=== PATIENT | male | born 1995 | race African-American/Black ===

== ENCOUNTER 2018-06-27 09:56 | Outpatient (CLI) | payer OTHER ==
[~2018-06-27] VITALS: Ht 170.2 cm; Wt 77.6 kg
== END 2018-06-27 11:56 | disposition home or self-care (01) ==
LOC: ECT 09:56
DX: F33.2 Major depressive disorder, recurrent severe without psychotic features (principal)

== ENCOUNTER 2018-07-08 09:07 | Outpatient (RCR) | payer OTHER ==
[~2018-07-08] VITALS: Ht 170.2 cm; Wt 77.6 kg
[2018-07-08] MEDS ORDERED: Methohexital Sodium Syr 100mg/10ml IVP ONE (09:08)
[2018-07-08] MEDS ORDERED: Midazolam 2mg/2ml Inj ONE (09:08)
[2018-07-08] MEDS ORDERED: Succinylcholine 20mg/ml 10ml vial ONE (09:08)
[2018-07-08] MEDS ORDERED: NS 500ML ONE (09:08)
[2018-07-08 11:44] VITALS: BP 127/83
[2018-07-08] MEDS ORDERED: Sodium Chloride 500ML 500 ML IV ONE (11:59)
[2018-07-08 12:00] VITALS: BP 132/50
[2018-07-08 12:05] VITALS: BP 131/49
[2018-07-08 12:10] VITALS: BP 131/65
[2018-07-08 12:15] VITALS: BP 140/74
[2018-07-08 12:47] VITALS: BP 127/83
[2018-07-10] MEDS ORDERED: Ketorolac 60mg Inj IM ONE (07:00)
[2018-07-10] MEDS ORDERED: NS 500ML ONE (07:00)
[2018-07-10] MEDS ORDERED: Methohexital Sodium Syr 100mg/10ml IVP ONE (07:00)
[2018-07-10] MEDS ORDERED: Midazolam 2mg/2ml Inj ONE (07:00)
[2018-07-10] MEDS ORDERED: Succinylcholine 20mg/ml 10ml vial ONE (07:00)
[2018-07-10 10:36] VITALS: BP 123/76
[2018-07-10] MEDS ORDERED: Sodium Chloride 500ML 500 ML IV ONE (10:48)
[2018-07-10 10:50] VITALS: BP 147/53
[2018-07-10 10:55] VITALS: BP 127/48
[2018-07-10 11:00] VITALS: BP 140/51
[2018-07-10 11:05] VITALS: BP 133/60
[2018-07-12] MEDS ORDERED: Midazolam 2mg/2ml Inj ONE (07:00)
[2018-07-12] MEDS ORDERED: Methohexital Sodium Syr 100mg/10ml IVP ONE (07:00)
[2018-07-12] MEDS ORDERED: NS 500ML ONE (07:00)
[2018-07-12] MEDS ORDERED: Succinylcholine 20mg/ml 10ml vial ONE (07:00)
[2018-07-12] MEDS ORDERED: Ketorolac 60mg Inj IM ONE (07:00)
[2018-07-12 10:07] VITALS: BP 113/63
[2018-07-12] MEDS ORDERED: Sodium Chloride 500ML 500 ML IV ONE (10:21)
[2018-07-12 10:25] VITALS: BP 128/58
[2018-07-12 10:30] VITALS: BP 131/58
[2018-07-12 10:35] VITALS: BP 126/63
[2018-07-12 10:40] VITALS: BP 128/66
[2018-07-15] MEDS ORDERED: Succinylcholine 20mg/ml 10ml vial ONE (07:00)
[2018-07-15] MEDS ORDERED: Midazolam 2mg/2ml Inj ONE (07:00)
[2018-07-15] MEDS ORDERED: Ketorolac 60mg Inj IM ONE (07:00)
[2018-07-15] MEDS ORDERED: NS 500ML ONE (07:00)
[2018-07-15] MEDS ORDERED: Norco 5mg/325mg tab ONE (07:00)
[2018-07-15] MEDS ORDERED: Methohexital Sodium Syr 100mg/10ml IVP ONE (07:00)
[2018-07-15] MEDS ORDERED: Sodium Chloride 500ML 500 ML IV ONE (09:00)
[2018-07-15 09:40] VITALS: BP 124/79
[2018-07-15 09:55] VITALS: BP 151/65
[2018-07-15 10:00] VITALS: BP 134/69
[2018-07-15 10:05] VITALS: BP 132/69
[2018-07-15 10:10] VITALS: BP 130/70
[2018-07-19] MEDS ORDERED: NS 500ML ONE (06:00)
[2018-07-19] MEDS ORDERED: Ketorolac 60mg Inj IM ONE (06:00)
[2018-07-19] MEDS ORDERED: Succinylcholine 20mg/ml 10ml vial ONE (06:00)
[2018-07-19] MEDS ORDERED: Methohexital Sodium Syr 100mg/10ml IVP ONE (06:00)
[2018-07-19] MEDS ORDERED: Midazolam 2mg/2ml Inj ONE (06:00)
[2018-07-19 09:49] VITALS: BP 125/82
[2018-07-19] MEDS ORDERED: Sodium Chloride 500ML 500 ML IV ONE (10:02)
[2018-07-19 10:05] VITALS: BP 143/43
[2018-07-19 10:10] VITALS: BP 129/49
[2018-07-19 10:15] VITALS: BP 129/55
[2018-07-19 10:20] VITALS: BP 135/48
== END 2018-07-21 | disposition home or self-care (01) ==
LOC: ECT 09:07
DX: F33.2 Major depressive disorder, recurrent severe without psychotic features (principal)
CPT/HCPCS: 90870; J0330; J2250; J2405; J7040

== ENCOUNTER 2018-07-22 07:56 | Outpatient (RCR) | payer OTHER ==
[~2018-07-22] VITALS: Ht 170.2 cm; Wt 77.6 kg
[2018-07-22] MEDS ORDERED: Methohexital Sodium Syr 100mg/10ml IVP ONE ×6 (07:57)
[2018-07-22] MEDS ORDERED: Ketorolac 60mg Inj IM ONE ×6 (07:57)
[2018-07-22] MEDS ORDERED: Midazolam 2mg/2ml Inj ONE ×6 (07:57)
[2018-07-22] MEDS ORDERED: NS 500ML ONE ×6 (07:57)
[2018-07-22] MEDS ORDERED: Succinylcholine 20mg/ml 10ml vial ONE ×6 (07:57)
[2018-07-22 10:40] VITALS: BP 124/71
[2018-07-22] MEDS ORDERED: Sodium Chloride 500ML 500 ML IV ONE (10:52)
[2018-07-22 10:55] VITALS: BP 131/56
[2018-07-22 11:00] VITALS: BP 125/63
[2018-07-22 11:05] VITALS: BP 126/66
[2018-07-22 11:10] VITALS: BP 128/68
[2018-07-24 10:31] VITALS: BP 135/70
[2018-07-24] MEDS ORDERED: Sodium Chloride 500ML 500 ML IV ONE (10:47)
[2018-07-24 10:50] VITALS: BP 135/62
[2018-07-24 10:55] VITALS: BP 138/65
[2018-07-24 11:00] VITALS: BP 137/67
[2018-07-24 11:05] VITALS: BP 132/61
[2018-07-26 10:44] VITALS: BP 125/83
[2018-07-26] MEDS ORDERED: Sodium Chloride 500ML 500 ML IV ONE (10:56)
[2018-07-26 11:00] VITALS: BP 139/42
[2018-07-26 11:05] VITALS: BP 131/57
[2018-07-26 11:10] VITALS: BP 129/62
[2018-07-26 11:15] VITALS: BP 133/69
[2018-07-29 10:02] VITALS: BP 131/81
[2018-07-29] MEDS ORDERED: Sodium Chloride 500ML 500 ML IV ONE (10:16)
[2018-07-29 10:20] VITALS: BP 127/81
[2018-07-29 10:25] VITALS: BP 128/69
[2018-07-29 10:30] VITALS: BP 130/70
[2018-07-29 10:35] VITALS: BP 126/69
[2018-07-31 10:25] VITALS: BP 142/94
[2018-07-31] MEDS ORDERED: Sodium Chloride 500ML 500 ML IV ONE (10:46)
[2018-07-31 10:50] VITALS: BP 134/83
[2018-07-31 10:55] VITALS: BP 138/75
[2018-07-31 11:00] VITALS: BP 131/77
[2018-07-31 11:05] VITALS: BP 135/79
[2018-08-05] MEDS ORDERED: Succinylcholine 20mg/ml 10ml vial ONE (06:00)
[2018-08-05] MEDS ORDERED: NS 500ML ONE (06:00)
[2018-08-05] MEDS ORDERED: Ketorolac 60mg Inj IM ONE (06:00)
[2018-08-05] MEDS ORDERED: Methohexital Sodium Syr 100mg/10ml IVP ONE (06:00)
[2018-08-05] MEDS ORDERED: Midazolam 2mg/2ml Inj ONE (06:00)
[2018-08-05 10:48] VITALS: BP 136/76
[2018-08-05] MEDS ORDERED: Sodium Chloride 500ML 500 ML IV ONE (11:01)
[2018-08-05 11:05] VITALS: BP 129/43
[2018-08-05 11:10] VITALS: BP 133/47
[2018-08-05 11:15] VITALS: BP 135/41
[2018-08-05 11:20] VITALS: BP 126/43
[2018-08-14 10:52] VITALS: BP 125/81
[2018-08-14] MEDS ORDERED: Sodium Chloride 500ML 500 ML IV ONE (11:05)
[2018-08-14 11:10] VITALS: BP 117/53
[2018-08-14 11:15] VITALS: BP 129/60
[2018-08-14 11:20] VITALS: BP 128/66
[2018-08-14 11:25] VITALS: BP 130/65
== END 2018-08-21 | disposition home or self-care (01) ==
LOC: ECT 07:56
DX: F33.2 Major depressive disorder, recurrent severe without psychotic features (principal)
CPT/HCPCS: 90870; J0330; J2250; J2405; J7040

== ENCOUNTER 2018-09-02 06:06 | Outpatient (RCR) | payer OTHER ==
[~2018-09-02] VITALS: Ht 170.2 cm; Wt 77.6 kg
[2018-09-02] MEDS ORDERED: Midazolam 2mg/2ml Inj ONE (06:07)
[2018-09-02] MEDS ORDERED: Ketorolac 60mg Inj IM ONE (06:07)
[2018-09-02] MEDS ORDERED: Methohexital Sodium Syr 100mg/10ml IVP ONE (06:07)
[2018-09-02] MEDS ORDERED: Succinylcholine 20mg/ml 10ml vial ONE (06:07)
[2018-09-02] MEDS ORDERED: NS 500ML ONE (06:07)
[2018-09-02 10:19] VITALS: BP 135/64
[2018-09-02] MEDS ORDERED: Sodium Chloride 500ML 500 ML IV ONE (10:38)
[2018-09-02 10:40] VITALS: BP 131/64
[2018-09-02 10:45] VITALS: BP 124/51
[2018-09-02 10:50] VITALS: BP 127/44
[2018-09-02 10:55] VITALS: BP 120/52
== END 2018-09-20 | disposition home or self-care (01) ==
LOC: ECT 06:06
DX: F33.2 Major depressive disorder, recurrent severe without psychotic features (principal)
CPT/HCPCS: 90870; J0330; J2250; J2405; J7040

== ENCOUNTER 2018-09-23 05:44 | Outpatient (RCR) | payer OTHER ==
[~2018-09-23] VITALS: Ht 170.2 cm; Wt 77.6 kg
[2018-09-23] MEDS ORDERED: NS 500ML ONE (05:45)
[2018-09-23] MEDS ORDERED: Succinylcholine 20mg/ml 10ml vial ONE (05:45)
[2018-09-23] MEDS ORDERED: Methohexital Sodium Syr 100mg/10ml IVP ONE (05:45)
[2018-09-23] MEDS ORDERED: Midazolam 2mg/2ml Inj ONE (05:45)
[2018-09-23] MEDS ORDERED: Ketorolac 60mg Inj IM ONE (05:45)
[2018-09-25 10:55] VITALS: BP 128/65
[2018-09-25 11:20] VITALS: BP 121/56
[2018-09-25 11:25] VITALS: BP 124/56
[2018-09-25 11:30] VITALS: BP 114/54
[2018-09-25 11:35] VITALS: BP 116/54
[2018-09-25] MEDS ORDERED: Sodium Chloride 500ML 500 ML IV ONE (14:30)
== END 2018-10-21 | disposition home or self-care (01) ==
LOC: ECT 05:44
DX: F33.2 Major depressive disorder, recurrent severe without psychotic features (principal)
CPT/HCPCS: 90870; J0330; J2250; J2405; J7040